=== PATIENT | female | born 1945 | race Caucasian/White ===

== ENCOUNTER → 2016-05-13 | Day surgery (SDC) | payer OTHER ==
[~2016-05-13] VITALS: Ht 147.3 cm; Wt 80.0 kg
[~2016-05-13] MED LIST: ACETAMINOPHEN 325 MG TAB PO PRN; AMLO5TAB2 PO; ASPI-589 PO; ATOR10TA88 PO; ATROPINE SULFATE 0.1 MG/ML 5ML SYR IV PRN; FENTANYL CITRATE INJ 50 MCG/1 ML 2 ML VIAL ONE; FLUT0.15 NAE; HEPARIN SOD (PORCINE) 1000 UNIT/ML 10 ML VIAL ONE; LISI40TA PO; METO25TA56 PO; MIDAZOLAM HCL 1 MG/ML 2ML VIAL ONE; NITROGLYCERIN/D5W 100MCG/ML 20ML SYR ONE; NiCARDipine HCL INJ 2.5 MG/ML 10 ML AMP ONE; ONDANSETRON INJ 2 MG/ML 2 ML VIAL IV PRN; PATIENT'S ALLERGY INFO NEEDS ENTERED SCH; PRM625 PV; SODIUM CHLORIDE 0.9% 1000ML 1,000 ML IV SCH; SODIUM CHLORIDE 0.9% 1000ML 250 ML IV PRN; VALA500T60 PO
[2016-05-13 10:10] VITALS: BP 160/57; PULSE 60; TEMP 36.5; O2SAT 96; Ht 147.3 cm; Wt 80.0 kg
--- NOTE | 2016-05-13 15:22 | History & Physical Bridge Note ---
H&P Re-Evaluation Bridge Note: I have examined the patient, reviewed the History & Physical and in the interval since the performance of the History & Physical I have noted the following changes of clinical significance: No changes noted
--- NOTE | 2016-05-13 15:29 | Cardiac Catheterization ---
Procedure Note Procedure Date May 13, 2016. Pre-Procedure Diagnosis Angina AUC Score 6 Post-Procedure Diagnosis Normal Coronary Arteries Procedure(s) Performed Coronary Angiography Laboratory Asst Dr. Mullen Reset Merchandiser(s) None Estimated Blood Loss None Medication(s) Heparin, Versed, Lidocaine 1% Summary of Findings normal coronaries Hemodynamics Rest Ao: 116/65 Final Ao: 120/63 LV: valve not crossed Recommendations None Specimens None Radiation Exposure (mGy) 907 Contrast (mls) 65 Fluids (cc crystalloids) 40 Procedural Complication(s) None Disposition Hand Miter Operator Holding/Recovery ACC Data Cardiac Status Clinical evaluation leading to the procedure CAD Presntation: Sx unlikely to be ischemic Anginal Classification: CCS I Heart Failure: No Cardiogenic Shock w/in 24Hrs: No Cardiac Arrest w/in 24Hrs: No Imaging studies past 6 months: No Stress studies past 6 months: No Standard Exercise Stress Test: No Stress Echocardiogram: No Stress Testing w/SPECT MPI: No Cardiac CTA: No Coronary Anatomy Dominant: Left Left Main (% Stenosis): Normal LAD (% Stenosis): Normal Circumflex (% Stenosis): Normal RCA (% Stenosis): Normal Diagnostic Status: Elective Closure Device Percutaneous Entry Location: Radial Closure Device: Radial Band Recommendations: None
--- NOTE | 2016-05-13 15:35 | Discharge Instructions ---
Discharge Instructions Procedure Procedure Date: May 13, 2016. Reason for Visit: Chest Pain *Dr Mullen To Do*. Discharge Discharge Date: May 13, 2016. Discharge Diagnosis: Normal cath Last Recorded Wt (Kilograms): 80 Anesthesia Post Anesthesia Instructions: If you have had General Anesthesia or IV Sedation: * Do not drive today. * Resume driving when surgeon permits. * Do not make important decisions or sign legal documents today. * Call surgeon for: 1. Temperature elevations greater than 101 degrees F. 2. Uncontrollable pain. 3. Excessive bleeding. 4. Persistent nausea and vomiting. 5. Medication intolerance (nausea, vomiting or rash). * For nausea and vomiting use only clear liquids such as: tea, soda, bouillon until nausea subsides, then gradually increase diet as tolerated. * If you have any concerns or questions, call your surgeon's office. If physician is unavailable and it is an emergency, call 911 or go to the nearest emergency room. Instructions Activity Recommendations: limitations Recommended Home Diet: resume previous diet Provider Instructions ACTIVITY RECOMMENDATIONS: Excess manipulation of the wrist should be avoided for the next 24-48 hours. * No lifting over 2 pounds (approximately a 1/2 gallon of milk) with the utilized arm for 24 hours. * No strenuous activity such as bowling or tennis for 3 days. * Keep the site of the procedure covered with a bandage for 24 hours. *You may shower the day after the procedure. Do not take a tub bath or submerge the puncture site in water for the next 3 days. *Do not operate any motorized equipment for 3 days. SPECIAL CARE INSTRUCTIONS: The site may be slightly bruised and sore following your procedure. Should any of the following occur, contact the Dr. who performed your procedure. 1. Redness/inflammation, swelling, chills, or fever, or colored drainage at procedure site within 3-7 days after your procedure. 2. Coldness, discoloration, ongoing numbness, severe pain, or swelling. Expect mild tingling of hand and tenderness at the puncture site for up to three days. If this persists beyond three days, or other symptoms develop, notify the DrMone who performed your procedure. BLEEDING: If the procedure site on your wrist begins to bleed, do not panic 1. Place 1 or 2 fingers firmly just slightly above the insertion site to stop the bleeding. You may be able to feel your pulse as you hold pressure. 2. Lift your finger after 5 minutes to see if the bleeding has stopped. 3. Once the bleeding has stopped, gently wipe the wrist area clean with a bandage. * If the bleeding from your wrist does not stop after 10 minutes, or if there is a large amount of bleeding or spurting, call 911 (do not drive yourself to the hospital). SKIN IRRITATION: * You may experience some redness and/or swelling in the area where radiation was administered. If any skin irritation occurs, please contact your family physician. FOLLOW UP VISIT: Keep any scheduled doctor appointments. Follow Up Follow-up with: Dr. Zarate office will call with follow-up date Minna Dominique Recommendations: Call your doctor if: * Temperature above 101 degrees * Pain not relieved by pain medicine ordered * There is increased drainage or redness from any incision * You have any unanswered questions or concerns. Your Doctors Instructions noted above were prepared by provider Jamshid Mullen. Patient Signature Section: Patient Instructions Signature Page Daxa Ruiz Patient (or Guardian) Signature/Date: I have read and understand the instructions given to me by my caregivers. Caregiver/RN/Doctor Signature/Date: The above-named patient and/or guardian has received patient instructions on this date. + Original Patient Signature Page (only) stays with chart. Please make copy for patient.
[2016-05-13 17:15] VITALS: BP 145/65; PULSE 66; O2SAT 98
--- NOTE | 2016-05-14 07:06 | CARDIAC CATH REPORT ---
PROCEDURE: Coronary angiography. HISTORY: The patient is a 71-year-old female with a history of PSVT, resulting in intermittent episodes of heart palpitations and atypical chest pain. She was seen by Dr. Zarate recently and had complaints of left arm and chest discomfort with activity. She recently had a brother who had open heart surgery. It was decided due to her history that it would be best to perform a cardiac catheterization. PROCEDURE SUMMARY: The patient was seen and evaluated in the holding area of the laborer [place]. After informed consent was obtained, a Barbeau maneuver was performed and the patient was taken to the cardiac catheterization lab, prepped and draped in the usual manner for a right transradial approach. Preformed 4-Burmese diagnostic catheters were utilized for the coronary angiograms. Following the procedure, the patient was returned to the holding area of the lab[place] in stable condition. CORONARY ANGIOGRAPHY: Elective injections of the left coronary artery reveal it to be hyperdominant. The left circumflex is very large with multiple marginal branches. The left circumflex artery is smooth in appearance, widely patent, and within normal limits. The LAD extends to the apex of the heart. The LAD system is smooth in appearance, widely patent, and within normal limits. The right coronary artery is small compared to the left circumflex and is nondominant. The right coronary artery is smooth in appearance, widely patent, and within normal limits. SUMMARY: The patient has widely patent and normal coronary arteries. Recommendations are for followup with her primary wood coater for further treatment of her PSVT.
== END | disposition home or self-care (01) ==
LOC: C.CATH 09:36
PROVIDERS: ATTEND Internal Medicine Interventional Cardiology
DX: I20.9 Angina pectoris, unspecified (principal)

== ENCOUNTER → 2016-06-15 | Outpatient (CLI) | payer OTHER ==
[~2016-06-15] MED LIST changes: -ACETAMINOPHEN 325 MG TAB PO PRN; -ATROPINE SULFATE 0.1 MG/ML 5ML SYR IV PRN; -FENTANYL CITRATE INJ 50 MCG/1 ML 2 ML VIAL ONE; -FLUT0.15 NAE; -HEPARIN SOD (PORCINE) 1000 UNIT/ML 10 ML VIAL ONE; -MIDAZOLAM HCL 1 MG/ML 2ML VIAL ONE; -NITROGLYCERIN/D5W 100MCG/ML 20ML SYR ONE; -NiCARDipine HCL INJ 2.5 MG/ML 10 ML AMP ONE; -ONDANSETRON INJ 2 MG/ML 2 ML VIAL IV PRN; -PATIENT'S ALLERGY INFO NEEDS ENTERED SCH; -PRM625 PV; -SODIUM CHLORIDE 0.9% 1000ML 1,000 ML IV SCH; -SODIUM CHLORIDE 0.9% 1000ML 250 ML IV PRN
--- NOTE | 2016-06-15 12:41 | MAMMOGRAPHY REPORT ---
BILATERAL DIGITAL SCREENING MAMMOGRAM WITH CAD: 06/15/2016 TECHNIQUE: Current study was also evaluated with a Computer Aided Detection (CAD) system. Bilatera l CC and MLO views were obtained. COMPARISON: Comparison is made to exams dated: 06/12/2015 mammogram, 06/11/2014 mammogram, 06/08/2013 ma mmogram, 06/06/2012 mammogram, 12/22/2012 mammogram, and 06/01/2011 mammogram - [facility]ter. BREAST COMPOSITION: There are scattered areas of fibroglandular density in both breasts. FINDINGS: No suspicious masses, calcifications, or areas of architectural distortion are noted in e ither breast. There has been no significant interval change compared to prior exams. Scattered bilat eral benign-appearing calcifications are not significantly changed. IMPRESSION: ACR BI-RADS CATEGORY 2: BENIGN There is no mammographic evidence of malignancy. A 1 year screening mammogram is recommended. The p atient will receive written notification of the results. Approximately 10% of breast cancers are not detected with mammography. A negative mammographic repor t should not delay biopsy if a clinically suggestive mass is present. Sofi Koehler M.D. ah/:06/15/2016 11:53:00 Lamination Spinner: Marya ALONSO(Jose)(Niru), [facility] letter sent: Normal 1/2 BI-RADS Code: ACR BI-RADS Category 2: Benign
== END | disposition home or self-care (01) ==
LOC: C.MAMM 10:50
PROVIDERS: ATTEND Family Medicine
DX: Z12.31 Encounter for screening mammogram for malignant neoplasm of breast (principal)

== ENCOUNTER → 2017-06-16 | Outpatient (CLI) | payer OTHER ==
[~2017-06-16] MED LIST changes: +ATOR10TA82 PO; -ATOR10TA88 PO
--- NOTE | 2017-06-16 15:23 | MAMMOGRAPHY REPORT ---
BILATERAL DIGITAL SCREENING MAMMOGRAM TOMOSYNTHESIS WITH CAD: 06/16/2017 CLINICAL HISTORY: Routine screening. Patient has no complaints. TECHNIQUE: Breast tomosynthesis in addition to standard 2D mammography was performed. Current study was also evaluated with a Computer Aided Detection (CAD) system. COMPARISON: Comparison is made to exams dated: 06/15/2016 mammogram, 06/12/2015 mammogram, 06/11/2014 ma mmogram, 06/08/2013 mammogram, 06/06/2012 mammogram, and 06/01/2011 mammogram - [facility]. BREAST COMPOSITION: There are scattered areas of fibroglandular density in both breasts. FINDINGS: No suspicious masses, calcifications, or areas of architectural distortion are noted in ei ther breast. There has been no significant interval change compared to prior exams. IMPRESSION: ACR BI-RADS CATEGORY 1: NEGATIVE There is no mammographic evidence of malignancy. A 1 year screening mammogram is recommended. The pa tient will receive written notification of the results. Approximately 10% of breast cancers are not detected with mammography. A negative mammographic report should not delay biopsy if a clinically suggestive mass is present. Sofi Koehler M.D. /:06/16/2017 11:30:45 Supervisor Lead Burning: Kalie ALONSO(Jose)(Niru), [facility] letter sent: Normal 1/2 BI-RADS Code: ACR BI-RADS Category 1: Negative
== END | disposition home or self-care (01) ==
LOC: C.MAMM 11:05
PROVIDERS: ATTEND Family Medicine
DX: Z12.31 Encounter for screening mammogram for malignant neoplasm of breast (principal)

== ENCOUNTER 2020-12-17 09:55 | Inpatient (IN) ==
--- NOTE | 2020-12-17 10:30 | Emergency Department Note ---
Impression & Plan Atrial fibrillation with rapid ventricular response, Anaplasmosis, Fever, Lyme disease, SVT (supraventricular tachycardia) ED Provider Note NAME: CABRERA ROSALES AGE: 75 SEX: F : 1945 ARRIVES VIA: Walk-In INFORMANT: Patient, ED PROVIDER(S): Chay Sales DO CHIEF COMPLAINT: Fever HPI: The patient is a 75-year-old female who presented to the emergency department for an evaluation of fever. The patient states that her symptoms began almost 2 weeks ago. She started having dental pain. She was having diffuse upper dentition pain but also lower dentition pain. She thought it was her teeth so she went to see her dentist. She had x-rays and was not found to have any cause for her pain. The patient was set up an appointment with a specialist. She started having fever and at that time was started on amoxicillin. She has been on amoxicillin for a week already. She states he continues to have fevers. She called her primary care physician last Wednesday and was sent to urgent care. She had a Covid test at that time which was negative. She called her primary care physician again today and [facility]. She denies having any chest pain. She denies having any cough. She denies having any diarrhea dysuria or frequency. She notices no lower extremity swelling or pain. She states the pain is mild to moderate at this time. She does take medicines for the fever and last took Tylenol at 6:00 this morning. She states she is been compliant with her other outpatient medications. She does garden but notices no rashes or joint swelling or joint pain. ROS: See above HPI for pertinent positives & negatives. A total of 10 systems reviewed and were otherwise negative. PAST MEDICAL HISTORY: See Below PAST SURGICAL HISTORY: See Below FAMILY HISTORY: See Below SOCIAL HISTORY: See Below HOME MEDICATIONS: See Below ALLERGIES: See Below VITALS: See Below PHYSICAL EXAMINATION: GENERAL: Patient is awake alert in no acute distress patient is resting comfo rtably and showing no signs of anxiety EYES: The conjunctivae are clear. The pupils are round and reactive. EARS, NOSE, MOUTH AND THROAT: The nose is without any evidence of any deformity. Dentition is intact. There is tenderness over the right maxillary region. NECK: The neck is nontender and supple. RESPIRATORY: Normal respiratory effort is noted there is no evidence of wheezing rhonchi or rales CARDIOVASCULAR: Tachycardic rate with regular rhythm was noted. There is no definite murmur. GASTROINTESTINAL: The abdomen is soft. Abdomen is nontender. MUSCULOSKELETAL/EXTREMITIES: There is no evidence of gross deformity full range of motion is noted in the hips and shoulders. SKIN: There is no obvious evidence of any rash. There are no petechiae, pallor or cyanosis noted. NEUROLOGIC: Patient is awake alert and oriented x3 strength is symmetric patellar reflexes are 2+ bilaterally MEDICAL DECISION MAKING: The patient is a 75-year-old female who presented to the emergency department with facial pain dental pain and acute febrile illness. The patient has been having symptoms for the last week or so. She has been seen by dental and this was not definitely the source of her fever or other symptoms. The patient was treated with IV antibiotics in the emergency department. Upon arrival she was found to be in rapid atrial fibrillation. The patient was treated with IV Cardizem. Her rate significantly improved. I discussed the patient's laboratory and radiographic studies with her. The atrial fibrillation would be a new diagnosis for her. For this reason I discussed her case with the on-call [facility] hospitalist group. She was also found to have a peripheral smear that could be consistent with anaplasmosis. This may explain the patient's febrile symptoms. She does work in her garden and may have been exposed to a tickborne illness. She was feeling much better on subsequent reevaluation. Triage Nursing notes reviewed. Prior medical records reviewed Vital Signs: reviewed and remarkable for tachypnea and tachycardia. Differential diagnosis: Viral syndrome, otitis, pharyngitis, pneumonia, influenza, meningitis, urinary tract infection, sepsis, bacteremia, as well as other pathologies. ER treatment provided: See below Diagnostics interpreted by me: ECG: EKG was obtained in the emergency department. My interpretation is atrial fibrillation at 144 bpm. Low voltage was noted. There were no PVCs noted. This was compared to a tracing from June [id number]. Atrial fibrillation has replaced normal sinus rhythm. A second EKG was obtained in the emergency department. My interpretation is atrial fibrillation at 105 bpm. There is no PVCs noted. This was compared to the earlier tracing there was a decrease in the ventricular rate otherwise there was no specific change. Cardiac Monitoring: An order was placed for continuous cardiac monitoring. The monitor shows a rate of 95 bpm with atrial fibrillation rhythm. Laboratory studies: As stated above and show below. Imaging studies: See below Consultation(s): I discussed this case with Radha who is on for the [facility] hospitalist group. They will evaluate the patient in the emergency department. 1345: The patient was witnessed to be in narrow complex tachycardia on the solvent station attendant. I went to the bedside. The patient was found to be in SVT. Modified Valsalva maneuver was done. The patient went from narrow complex tachycardia to 100 bpm. She started to slow and was initially at 170 bpm but then broke back to atrial fibrillation at 98 bpm. Repeat EKG is pending. Em Vargas PA-C was at the bedside. They will continue further cardiac work-up. Past Med/Surg History Medical History History of PSVT (paroxysmal supraventricular tachycardia) HLD (hyperlipidemia) HTN (hypertension) Surgical History History of appendectomy History of tonsillectomy Family History Other Heart disease Hypertension Social History Smoking Status: Never smoker Hx Alcohol Use: No Hx Substance Use: No Preferred Language: Maltese Feels Safe at Home: Yes Allergies Allergies Allergy/AdvReac Type Severity Reaction Status Date / Time Sulfa (Sulfonamide Allergy Unknown . Verified 12/17/20 10:41 Antibiotics) Home Meds Home Medications Medication Instructions Recorded Confirmed acetaminophen 500 mg tablet 500 mg PO Q6H PRN 12/17/20 12/17/20 (Tylenol Extra Strength) amoxicillin 500 mg-potassium 1 tab PO TID 12/17/20 12/17/20 clavulanate 125 mg tablet hydrochlorothiazide 25 mg tablet 12.5 mg PO DAILY 12/17/20 12/17/20 lisinopril 40 mg tablet 40 mg PO QAM 12/17/20 12/17/20 loratadine 10 mg tablet 10 mg PO DAILY PRN 12/17/20 12/17/20 yebyrmflkpps-fdsrumsh-vyclhh tablet 1 tab PO DAILY 12/17/20 12/17/20 rosuvastatin 5 mg tablet 5 mg PO MOWEFR 12/17/20 12/17/20 valacyclovir 500 mg tablet 500 mg PO BID PRN 12/17/20 12/17/20 Results & Data (ED) Vital Signs Vital Signs - 24 hr 12/17/20 09:57 12/17/20 11:09 12/17/20 11:14 Temperature 36.8 C Temperature Source Temporal Artery Scan Pulse Rate 148 H 147 H Pulse Rate [Apical] 145 H Pulse Rate from SpO2 Sensor 158 H Pulse Rhythm Regular Pulse Strength Normal Respiratory Rate 20 23 20 Respiratory Effort / Characteristics Non-Labored Spontaneous Respiratory Depth Normal Respiratory Pattern Regular Blood Pressure 166/132 H 140/108 H Blood Pressure [Left Arm] 140/108 H Blood Pressure Mean 143 118 Blood Pressure Mean [Left Arm] 118 Blood Pressure Position Sitting Blood Pressure Position [Left Arm] Pulse Oximetry 96 95 95 Oxygen Delivery Method Room Air Room Air Sepsis Recent Fever Within 48 Hours No Sepsis New/Unexplained Change in Mental Status No Sepsis Action Taken by Nursing No Action Required 12/17/20 11:17 12/17/20 12:32 12/17/20 12:36 Temperature Temperature Source Pulse Rate 95 H 115 H Pulse Rate [Apical] 88 129 H Pulse Rate from SpO2 Sensor 98 H 141 H Pulse Rhythm Pulse Strength Respiratory Rate 31 H 22 20 Respiratory Effort / Characteristics Respiratory Depth Respiratory Pattern Blood Pressure 129/64 Blood Pressure [Left Arm] 129/64 149/100 H Blood Pressure Mean 85 Blood Pressure Mean [Left Arm] 85 116 Blood Pressure Position Blood Pressure Position [Left Arm] Lying Pulse Oximetry 94 93 95 Oxygen Delivery Method Room Air Room Air Sepsis Recent Fever Within 48 Hours Sepsis New/Unexplained Change in Mental Status Sepsis Action Taken by Nursing 12/17/20 13:02 12/17/20 13:10 12/17/20 13:20 Temperature Temperature Source Pulse Rate 110 H 137 H 135 H Pulse Rate [Apical] Pulse Rate from SpO2 Sensor 122 H 139 H 137 H Pulse Rhythm Pulse Strength Respiratory Rate 21 23 25 H Respiratory Effort / Characteristics Respiratory Depth Respiratory Pattern Blood Pressure Blood Pressure [Left Arm] Blood Pressure Mean Blood Pressure Mean [Left Arm] Blood Pressure Position Blood Pressure Position [Left Arm] Pulse Oximetry 94 94 93 Oxygen Delivery Method Sepsis Recent Fever Within 48 Hours Sepsis New/Unexplained Change in Mental Status Sepsis Action Taken by Nursing 12/17/20 13:30 12/17/20 13:40 12/17/20 13:50 Temperature Temperature Source Pulse Rate 93 H 189 H 109 H Pulse Rate [Apical] Pulse Rate from SpO2 Sensor 94 H 189 H 110 H Pulse Rhythm Pulse Strength Respiratory Rate 25 H 26 H 25 H Respiratory Effort / Characteristics Respiratory Depth Respiratory Pattern Blood Pressure Blood Pressure [Left Arm] Blood Pressure Mean Blood Pressure Mean [Left Arm] Blood Pressure Position Blood Pressure Position [Left Arm] Pulse Oximetry 93 95 97 Oxygen Delivery Method Sepsis Recent Fever Within 48 Hours Sepsis New/Unexplained Change in Mental Status Sepsis Action Taken by Nursing 12/17/20 14:00 Temperature Temperature Source Pulse Rate Pulse Rate [Apical] 100 H Pulse Rate from SpO2 Sensor Pulse Rhythm Pulse Strength Respiratory Rate 20 Respiratory Effort / Characteristics Respiratory Depth Respiratory Pattern Blood Pressure Blood Pressure [Left Arm] Blood Pressure Mean Blood Pressure Mean [Left Arm] Blood Pressure Position Blood Pressure Position [Left Arm] Pulse Oximetry 93 Oxygen Delivery Method Room Air Sepsis Recent Fever Within 48 Hours Sepsis New/Unexplained Change in Mental Status Sepsis Action Taken by Alf Medications Current Medication List: was personally reviewed by me Laboratory Data Attestation: I reviewed the patient's lab results. Result diagrams: 12/17/20 10:37 12/17/20 10:37 Lab Results 12/17/20 12/17/20 12/17/20 Range/Units 10:37 10:37 10:37 WBC 11.57 H (4.8-10.8) K/uL RBC 4.60 (4.2-5.4) M/uL Hgb 13.4 (12.0-16.0) g/dL Hct 38.6 (37-47) % MCV 83.9 (80-100) fL MCH 29.1 (25-34) pg MCHC 34.7 (32-36) g/dL RDW Std Deviation 43.3 (36.4-46.3) fL RDW Coeff of Summer 14.2 (11.5-14.5) % Plt Count 260 (130-400) K/uL MPV 9.2 (7.4-10.4) fL Immature Gran % (Auto) 0.9 % Neut % (Auto) 65.4 % Lymph % (Auto) 22.7 % [place] % (Auto) 8.6 % Eos % (Auto) 1.4 % Baso % (Auto) 1.0 % Neut # (Auto) 7.58 H (1.4-6.5) K/uL Lymph # (Auto) 2.63 (1.2-3.4) K/uL [place] # (Auto) 0.99 H (0.11-0.59) K/uL Eos # (Auto) 0.16 (0-0.5) K/uL Baso # (Auto) 0.11 (0-0.2) K/uL Immature Gran # (Auto) 0.10 H (0.00-0.02) K/uL Peripher Smr Path Cons ESR 63 H (0-30) mm/hr Sodium 133 L (136-145) mmol/L Potassium 3.6 (3.5-5.1) mmol/L Chloride 103 (98-107) mmol/L Carbon Dioxide 26 (21-32) mmol/L Anion Gap 4.0 (3-11) BUN 15 (7-18) mg/dl Creatinine 0.72 (0.6-1.2) mg/dl Est Cr Clr Drug Dosing 61.3 ml/min Est GFR ( Amer) 95.6 ml/min Est GFR (Non-Af Amer) 82.5 ml/min BUN/Creatinine Ratio 20.3 H (10-20) Glucose 120 H (70-99) mg/dl Calcium 8.8 (8.5-10.1) mg/dl Magnesium 1.9 (1.8-2.4) mg/dl Total Bilirubin 0.6 (0.2-1) mg/dl AST 49 H (15-37) U/L ALT 64 (12-78) U/L Alkaline Phosphatase 156 H (45-117) U/L Troponin I 0.018 (0-0.045) ng/ml C-Reactive Protein 9.37 H (0-0.29) mg/dl Total Protein 6.7 (6.4-8.2) gm/dl Albumin 2.9 L (3.4-5.0) gm/dl Globulin 3.8 (2.5-4.0) gm/dl Albumin/Globulin Ratio 0.8 L (0.9-2) Lipase 106 (73-393) U/L Procalcitonin (0-0.5) ng/ml TSH 1.220 (0.300-4.500) uIu/ml Anaplasma Smear See Comment A Anaplasma Comment Pos for Anaplasma Lyme Disease IgG Ab (Negative) Lyme Disease IgM Ab (Negative) COVID-19 Eval Order SARS-CoV-2 (PCR) (Negative) 12/17/20 12/17/20 12/17/20 Range/Units 10:37 11:36 11:36 WBC (4.8-10.8) K/uL RBC (4.2-5.4) M/uL Hgb (12.0-16.0) g/dL Hct (37-47) % MCV (80-100) fL MCH (25-34) pg MCHC (32-36) g/dL RDW Std Deviation (36.4-46.3) fL RDW Coeff of Summer (11.5-14.5) % Plt Count (130-400) K/uL MPV (7.4-10.4) fL Immature Gran % (Auto) % Neut % (Auto) % Lymph % (Auto) % [place] % (Auto) % Eos % (Auto) % Baso % (Auto) % Neut # (Auto) (1.4-6.5) K/uL Lymph # (Auto) (1.2-3.4) K/uL [place] # (Auto) (0.11-0.59) K/uL Eos # (Auto) (0-0.5) K/uL Baso # (Auto) (0-0.2) K/uL Immature Gran # (Auto) (0.00-0.02) K/uL Peripher Smr Path Cons ESR (0-30) mm/hr Sodium (136-145) mmol/L Potassium (3.5-5.1) mmol/L Chloride (98-107) mmol/L Carbon Dioxide (21-32) mmol/L Anion Gap (3-11) BUN (7-18) mg/dl Creatinine (0.6-1.2) mg/dl Est Cr Clr Drug Dosing ml/min Est GFR ( Amer) ml/min Est GFR (Non-Af Amer) ml/min BUN/Creatinine Ratio (10-20) Glucose (70-99) mg/dl Calcium (8.5-10.1) mg/dl Magnesium (1.8-2.4) mg/dl Total Bilirubin (0.2-1) mg/dl AST (15-37) U/L ALT (12-78) U/L Alkaline Phosphatase (45-117) U/L Troponin I (0-0.045) ng/ml C-Reactive Protein (0-0.29) mg/dl Total Protein (6.4-8.2) gm/dl Albumin (3.4-5.0) gm/dl Globulin (2.5-4.0) gm/dl Albumin/Globulin Ratio (0.9-2) Lipase (73-393) U/L Procalcitonin 0.46 (0-0.5) ng/ml TSH (0.300-4.500) uIu/ml Anaplasma Smear Anaplasma Comment Lyme Disease IgG Ab Negative (Negative) Lyme Disease IgM Ab Positive A (Negative) COVID-19 Eval Order Covid19 at [facility] SARS-CoV-2 (PCR) NEGATIVE (Negative) Administered Medications Discontinued Medications Adenosine (Adenosine Iv Soln 3 Mg/Ml 2 Ml Vial) 6 mg IV NOW STA Stop: 12/17/20 13:45 Last Admin: 12/17/20 13:57 Dose: Not Given Documented by: [id number] Diltiazem HCl (Diltiazem Hcl 5 Mg/Ml 5 Ml Vial) 20 mg IV NOW STA Stop: 12/17/20 10:50 Last Admin: 12/17/20 11:11 Dose: 20 mg Documented by: [id number] Cosigned by: [id number] Doxycycline Hyclate (Doxycycline Hyclate 100 Mg Cap) 200 mg PO NOW STA Stop: 12/17/20 11:24 Last Admin: 12/17/20 12:02 Dose: 200 mg Documented by: [id number] Ceftriaxone Sodium (Rocephin) 1,000 mg in 50 mls @ 100 mls/hr IV NOW STA Stop: 12/17/20 11:52 Last Infusion: 12/17/20 12:32 Dose: 0 mls/hr Documented by: [id number] Admin: 12/17/20 12:02 Dose: 100 mls/hr Documented by: [id number] Ondansetron HCl (Ondansetron Inj 2 Mg/Ml 2 Ml Vial) 4 mg IV NOW STA Stop: 12/17/20 12:03 Last Admin: 12/17/20 12:06 Dose: 4 mg Documented by: [id number] Imaging Data Radiologist's Impression: Chest X-Ray 12/17/20 10:24 XR chest 1V portable HISTORY: 75 years-old Female Fever acute fever COMPARISON: None TECHNIQUE: Portable AP view of the chest FINDINGS: Cardiac silhouette is mildly enlarged. There is a suggested hiatal hernia. Linear left greater than right bibasilar consolidative opacities. There is no pn eumothorax, pleural effusion, or overt pulmonary edema. The bones of the chest appear grossly intact. IMPRESSION: 1. Linear bibasilar opacities are suggestive of probable atelectasis. 2. Cardiomegaly. ACT 112: Negative or not required by law. The above report was generated using voice recognition software. It may contain grammatical, syntax or spelling errors. Electronically signed by: Jose Eduardo Pringle M.D. 12/17/2020 10:[address] 12/17/20 10:[address] DOSE: HISTORY: Headache. TECHNIQUE: Multiaxial CT images of the head were performed without the use of intravenous contrast. Automated exposure control was utilized for this study. A dose lowering technique was utilized adhering to the principles of ALARA. Comparison: None. Findings: The paranasal sinuses and mastoid air cells are clear. The calvarium and skull base are intact. The ventricles and sulci are within normal limits. There is no mass, hematoma, midline shift, or acute infarct. Impression: No acute intracranial abnormality. ACT 112: Negative or not required by law. Electronically signed by: Pepe Orellana M.D. 12/17/2020 11:[address] 12/17/20 10:24 CT sinus wo con HISTORY: 75 years-old Female fever acute fever COMPARISON: Head CT of same day TECHNIQUE: Multiple axial CT images of the paranasal sinuses were obtained without the use of IV contrast. A dose lowering technique was used consistent with the principals of ALARA. FINDINGS: The imaged intracranial structures demonstrate no acute abnormality. Age-related involutional changes. Unremarkable soft tissues and orbits. Streak artifact from dental amalgam hardware. No acute calvarial or facial bone fracture. The mastoid air cells and middle ear cavities are generally clear. The frontal sinuses are clear. There is minimal mucosal thickening of the maxillary and sphenoid sinuses. Mild mucosal thickening involves the ethmoid air cells. Patency of the sphenoethmoidal and frontoethmoidal recesses and bilateral maxillary ostiomeatal units. No large Anushka cell or jericho bullosa. Normal nathaly akhil. Minimal sigmoidal bowing and spurring of the nasal septum. IMPRESSION: 1. Mild paranasal sinus disease. 2. Patent sinus outflow tracts. ACT 112: Negative or not required by law. The above report was generated using voice recognition software. It may contain grammatical, syntax or spelling errors. Electronically signed by: Jose Eduardo Pringle M.D. 12/17/2020 11:04 AM Discharge Plan Visit Data Chief Complaint: Fever Stated Complaint: FEVER,FATIGUE ED Provider: Chay Sales Discharge Problem: Atrial fibrillation with rapid ventricular response, Anaplasmosis, Fever, Lyme disease, SVT (supraventricular tachycardia) Patient Disposition: Being Evaluated by Hospitalist Condition: Good Forms Stand Alone Forms: [facility] Prescriptions Prescriptions: No Action valacyclovir 500 mg tablet 500 mg PO BID PRN (Reason: Cold Sores) RF: 0 hydrochlorothiazide 25 mg tablet 12.5 mg PO DAILY RF: 0 lisinopril 40 mg tablet 40 mg PO QAM RF: 0 loratadine 10 mg Tablet 10 mg PO DAILY PRN (Reason: Allergy Symptoms) RF: 0 amoxicillin-pot clavulanate 500-125 mg tablet 1 tab PO TID RF: 0 Centrum Silver Tablet 1 tab PO DAILY RF: 0 rosuvastatin 5 mg tablet 5 mg PO MOWEFR RF: 0 acetaminophen [Tylenol Extra Strength] 500 mg Tablet 500 mg PO Q6H PRN (Reason: Pain) RF: 0 Referrals Referrals: Osbaldo Del Angel MD [Primary Care Provider] - Discharge Problem: Fever Qualifiers: Fever type: unspecified Qualified Code(s): R50.9 - Fever, unspecified
[2020-12-17] MEDS ORDERED: dilTIAZem HCl 5 MG/ML 5 ML VIAL IV STA (10:49)
[2020-12-17 10:50] LABS: Hematocrit (blood only) 38.6 % (37-47); Hemoglobin 13.4 g/dL (12.0-16.0); Mean Corpuscular Hemoglobin 29.1 pg (25-34); Mean Corpuscular Hgb Conc 34.7 g/dL (32-36); Mean Corpuscular Volume 83.9 fL (80-100); Mean Platelet Volume 9.2 fL (7.4-10.4); Platelet Count 260 K/uL (130-400); RDW Coefficient of Variation 14.2 % (11.5-14.5); RDW Standard Deviation 43.3 fL (36.4-46.3); White Blood Count 11.57 K/uL (4.8-10.8)
--- NOTE | 2020-12-17 10:57 | XRay Report ---
XR chest 1V portable HISTORY: 75 years-old Female Fever acute fever COMPARISON: None TECHNIQUE: Portable AP view of the chest FINDINGS: Cardiac silhouette is mildly enlarged. There is a suggested hiatal hernia. Linear left greater than r ight bibasilar consolidative opacities. There is no pneumothorax, pleural effusion, or overt pulmonar y edema. The bones of the chest appear grossly intact. IMPRESSION: 1. Linear bibasilar opacities are suggestive of probable atelectasis. 2. Cardiomegaly. ACT 112: Negative or not required by law. The above report was generated using voice recognition software. It may contain grammatical, syntax o r spelling errors. Electronically signed by: Jose Eduardo Pringle M.D. 12/17/2020 10:56 AM
--- NOTE | 2020-12-17 11:04 | CT Scan Report ---
HEAD CT NONCONTRAST CT DOSE: HISTORY: Headache. TECHNIQUE: Multiaxial CT images of the head were performed without the use of intravenous contrast. A utomated exposure control was utilized for this study. A dose lowering technique was utilized adheri ng to the principles of ALARA. Comparison: None. Findings: The paranasal sinuses and mastoid air cells are clear. The calvarium and skull base are int act. The ventricles and sulci are within normal limits. There is no mass, hematoma, midline shift, or acute infarct. Impression: No acute intracranial abnormality. ACT 112: Negative or not required by law. Electronically signed by: Pepe Orellana M.D. 12/17/2020 11:02 AM
--- NOTE | 2020-12-17 11:05 | CT Scan Report ---
CT sinus wo con HISTORY: 75 years-old Female fever acute fever COMPARISON: Head CT of same day TECHNIQUE: Multiple axial CT images of the paranasal sinuses were obtained without the use of IV cont rast. A dose lowering technique was used consistent with the principals of JAMAL. FINDINGS: The imaged intracranial structures demonstrate no acute abnormality. Age-related involutional changes . Unremarkable soft tissues and orbits. Streak artifact from dental amalgam hardware. No acute calvar ial or facial bone fracture. The mastoid air cells and middle ear cavities are generally clear. The frontal sinuses are clear. There is minimal mucosal thickening of the maxillary and sphenoid sinu ses. Mild mucosal thickening involves the ethmoid air cells. Patency of the sphenoethmoidal and front oethmoidal recesses and bilateral maxillary ostiomeatal units. No large Anushka cell or jericho bullosa . Normal nathaly akhil. Minimal sigmoidal bowing and spurring of the nasal septum. IMPRESSION: 1. Mild paranasal sinus disease. 2. Patent sinus outflow tracts. ACT 112: Negative or not required by law. The above report was generated using voice recognition software. It may contain grammatical, syntax o r spelling errors. Electronically signed by: Jose Eduardo Pringle M.D. 12/17/2020 11:04 AM
[2020-12-17 11:07] LABS: Albumin Level 2.9 gm/dl (3.4-5.0); BUN Creatinine Ratio 20.3 (10-20); Calcium 8.8 mg/dl (8.5-10.1); Creatinine Clr Calc Pharmacy 61.3 ml/min; Est GFR (African American) 95.6 ml/min; Est GFR (Non-African American) 82.5 ml/min; Magnesium 1.9 mg/dl (1.8-2.4); Potassium 3.6 mmol/L (3.5-5.1)
[2020-12-17 11:16] LABS: Albumin Globulin Ratio 0.8 (0.9-2); Bilirubin,Total 0.6 mg/dl (0.2-1); C Reactive Protein 9.37 mg/dl (0-0.29); Globulin 3.8 gm/dl (2.5-4.0); Thyroid Stimulating Hormone 1.22 uIu/ml (0.300-4.500); Total Protein 6.7 gm/dl (6.4-8.2); Troponin I 0.018 ng/ml (0-0.045)
[2020-12-17] MEDS ORDERED: cefTRIAXone SODIUM 1,000 MG/50 ML BAG IV STA (11:23)
[2020-12-17] MEDS ORDERED: DOXYCYCLINE HYCLATE 100 MG CAP PO STA (11:23)
[2020-12-17 11:28] LABS: Basophils # (auto) 0.11 K/uL (0-0.2); Eosinophils # (auto) 0.16 K/uL (0-0.5); Eosinophils % (auto) 1.4 %; Immature Granulocytes % (auto) 0.9 %; Lymphocytes # (auto) 2.63 K/uL (1.2-3.4); Lymphocytes % (auto) 22.7 %; Monocytes # (auto) 0.99 K/uL (0.11-0.59); Monocytes % (auto) 8.6 %; Neutrophils # (auto) 7.58 K/uL (1.4-6.5); Neutrophils % (auto) 65.4 %
[2020-12-17 11:33] LABS: Procalcitonin 0.46 ng/ml (0-0.5)
[2020-12-17 11:39] LABS: Lyme Ab IgG w/WB Rflx Negative (Negative)
[2020-12-17] MEDS ORDERED: ONDANSETRON INJ 2 MG/ML 2 ML VIAL IV STA (12:02)
[2020-12-17 12:09] LABS: Lyme Ab IgM w/WB Rflx Positive (Negative)
[2020-12-17 12:13] LABS: Anaplasmosis Smear(Rpt to DOH) Pos for Anaplasma
--- NOTE | 2020-12-17 12:54 | History & Physical Report ---
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 Afebrile in ER Peripheral smear with intracytoplasmic neutrophilic inclusions noted suspicious for anaplasmosis Anaplasma DNA pending Lyme IgM Ab positive - western blot pending Continue Rocephin and doxycycline Follow blood cultures (4) Tachyarrhythmia: Plan: Initially found to have A fib with RVR at 144 bpm. HR improved to low 100s after 20mg IV diltiazem in ER While still in ER, became tachycardic at 180s-190s with rhythm suspicious for SVT - resolved with vasovagal maneuver, repeat EKG showing NSR at [address] Zarate, who will evaluate patient Giving Lopressor 25mg PO now, and again in AM Will hold off on anticoagulation for now, monitor on telemetry TTE to evaluate for lyme endocarditis (5) HTN (hypertension): Plan: Continue lisinopril Holding hctz in setting of hyponatremia (6) HLD (hyperlipidemia): Plan: Continue statin DVT Ppx: SQ heparin Code status: FULL PCP: Mer Dispo: Admitted to PCU. Plan to return home once medically stable. Patient seen in collaboration with Dr. Montez. Please see addendum. History of Present Illness Chief Complaint: fever, facial pain Primary Care Provider: Osbaldo Del Angel MD This is a 75yo F with a PMH of HTN, GERD, paroxysmal SVT and other medical problems listed below who presents with fever x2 weeks. Has felt achy and fatigued. Then developed facial pain in area of upper dentition and sinuses a few weeks ago and was evaluated by dentist. Had xrays and dental exam but was not found to have a cause for pain. Developed fever and started on course of amoxicillin. Was seen by PCP last Wednesday and sent to urgent care. Covid test was performed which was negative. Concern for possible tickborne disease due to lab abnormalities. Directed to come to ER for further evaluation. Does garden and spend time outdoors. Had a bump on L thigh then has since resolved. New rash on chest and back her daughter noticed earlier today. Continues to feel fatigued, achy and weak. Has had intermittent palpitations since arrival. No fever, chills, lightheadedness, visual changes, chest pain, SOB, nausea, vomiting, abdominal pain, dysuria, diarrhea or constipation. Initially found to have A fib with RVR at 144 bpm. Given 10mg IV diltiazem with improved HR to low 100s. Prior to my exam, patient's HR back to 180s. Underwent valsalva maneuver for suspected SVT with resolution. Repeat EKG showing NSR at [address] Zarate for paroxysmal SVT but no known history of Atrial fibrillation. Allergies Allergy/AdvReac Type Severity Reaction Status Date / Time Sulfa (Sulfonamide Allergy Unknown . Verified 12/17/20 10:41 Antibiotics) Home Medications Medication Instructions Recorded Confirmed Type acetaminophen 500 mg tablet 500 mg PO Q6H PRN 12/17/20 12/17/20 History (Tylenol Extra Strength) hydrochlorothiazide 25 mg tablet 12.5 mg PO DAILY 12/17/20 12/17/20 History lisinopril 40 mg tablet 40 mg PO QAM 12/17/20 12/17/20 History loratadine 10 mg tablet 10 mg PO DAILY PRN 12/17/20 12/17/20 History bykqrywqnzcj-xqovhcqw-emuurg tablet 1 tab PO DAILY 12/17/20 12/17/20 History rosuvastatin 5 mg tablet 5 mg PO MOWEFR 12/17/20 12/17/20 History valacyclovir 500 mg tablet 500 mg PO BID PRN 12/17/20 12/17/20 History doxycycline hyclate 100 mg tablet 100 mg PO BID 14 Days #28 tab 12/19/20 Rx metoprolol tartrate 25 mg tablet 25 mg PO BID 30 Days #60 tab 12/19/20 Rx Past Med/Surg History Medical History History of PSVT (paroxysmal supraventricular tachycardia) HLD (hyperlipidemia) HTN (hypertension) Surgical History History of appendectomy History of tonsillectomy Family History Other Heart disease Hypertension Social History Smoking Status: Never smoker Hx Alcohol Use: No Hx Substance Use: No Preferred Language: Tongan Communication Ability: Effective Beliefs That Will Affect Care: None Current Living Situation: Alone Feels Safe at Home: Yes Assistive Devices: None Review of Systems Review of Systems: At least ten systems reviewed and negative except as noted in the HPI. Physical Exam Physical Exam: General Appearance: WD/WN, vitals as above, NAD, sitting up in bed, pleasant, conversing easily Head: normocephalic, atraumatic Eyes: normal inspection, PERRL, conjunctivae normal, anicteric sclerae ENT: external ear and nose normal, oropharynx normal Neck: normal visual inspection, trachea midline, no thyromegaly Respiratory: normal respiratory effort, lungs clear to auscultation, no wheeze, rales, rhonchi. No accessory muscle use Cardiovascular: tachycardic rate, regular rhythm, no murmur appreciated, normal peripheral pulses, no BLE edema. Vessels: no JVD Chest: normal inspection of chest Abdomen/GI: normal bowel sounds, soft, nontender, no hepatosplenomegaly Extremities/Musculoskeletal: no cyanosis or clubbing, extremities motor strength 5/5 Neurologic: PERRL, EOMI, accommodation nl, no face palsy, no dysarthria, CN's II-XI intact bilaterally and moves all extremities Psychiatric: A+Ox3, euthymic affect Skin: no rashes, normal color, warm/dry. + Maculopapular rash on chest and upper back, no wounds or drainage Results & Data Results & Data ([facility]) Vital Signs (Past 12 Hours) Vital Signs Temp Pulse Pulse Resp BP BP Pulse Ox 12/17/20 12:36 129 H 20 149/100 H 95 12/17/20 12:32 115 H 22 93 12/17/20 11:17 95 H 88 31 H 129/64 129/64 94 12/17/20 11:14 145 H 20 140/108 H 95 12/17/20 11:09 147 H 23 140/108 H 95 12/17/20 09:57 36.8 C 148 H 20 166/132 H 96 Laboratory Results Short CBC 12/17/20 Range/Units 10:37 WBC 11.57 H (4.8-10.8) K/uL Hgb 13.4 (12.0-16.0) g/dL Hct 38.6 (37-47) % Plt Count 260 (130-400) K/uL BMP 12/17/20 10:37 Sodium 133 L Potassium 3.6 Chloride 103 Carbon Dioxide 26 BUN 15 Creatinine 0.72 Glucose 120 H Calcium 8.8 Cardiac Enzymes 12/17/20 Range/Units 10:37 Troponin I 0.018 (0-0.045) ng/ml Liver Function 12/17/20 Range/Units 10:37 Total Bilirubin 0.6 (0.2-1) mg/dl AST 49 H (15-37) U/L ALT 64 (12-78) U/L Alkaline Phosphatase 156 H (45-117) U/L Albumin 2.9 L (3.4-5.0) gm/dl Diagnostic Findings Chest X-Ray 12/17/20 10:24 XR chest 1V portable HISTORY: 75 years-old Female Fever acute fever COMPARISON: None TECHNIQUE: Portable AP view of the chest FINDINGS: Cardiac silhouette is mildly enlarged. There is a suggested hiatal hernia. Linear left greater than right bibasilar consolidative opacities. There is no pneumothorax, pleural effusion, or overt pulmonary edema. The bones of the chest appear grossly intact. IMPRESSION: 1. Linear bibasilar opacities are suggestive of probable atelectasis. 2. Cardiomegaly. ACT 112: Negative or not required by law. The above report was generated using voice recognition software. It may contain grammatical, syntax or spelling errors. Electronically signed by: Jose Eduardo Pringle M.D. 12/17/2020 10:[address] 12/17/20 10:[address] DOSE: HISTORY: Headache. TECHNIQUE: Multiaxial CT images of the head were performed without the use of intravenous contrast. Automated exposure control was utilized for this study. A dose lowering technique was utilized adhering to the principles of ALARA. Comparison: None. Findings: The paranasal sinuses and mastoid air cells are clear. The calvarium and skull base are intact. The ventricles and sulci are within normal limits. There is no mass, hematoma, midline shift, or acute infarct. Impression: No acute intracranial abnormality. ACT 112: Negative or not required by law. Electronically signed by: Pepe Orellana M.D. 12/17/2020 11:[address] 12/17/20 10:24 CT sinus wo con HISTORY: 75 years-old Female fever acute fever COMPARISON: Head CT of same day TECHNIQUE: Multiple axial CT images of the paranasal sinuses were obtained without the use of IV contrast. A dose lowering technique was used consistent with the principals of ALARA. FINDINGS: The imaged intracranial structures demonstrate no acute abnormality. Age-related involutional changes. Unremarkable soft tissues and orbits. Streak artifact from dental amalgam hardware. No acute calvarial or facial bone fracture. The mastoid air cells and middle ear cavities are generally clear. The frontal sinuses are clear. There is minimal mucosal thickening of the maxillary and sphenoid sinuses. Mild mucosal thickening involves the ethmoid air cells. Patency of the sphenoethmoidal and frontoethmoidal recesses and bilateral maxillary ostiomeatal units. No large Anushka cell or jericho bullosa. Normal nathaly akhil. Minimal sigmoidal bowing and spurring of the nasal septum. IMPRESSION: 1. Mild paranasal sinus disease. 2. Patent sinus outflow tracts. ACT 112: Negative or not required by law. The above report was generated using voice recognition software. It may contain grammatical, syntax or spelling errors. Electronically signed by: Jose Eduardo Pringle M.D. 12/17/2020 11:04 AM Code Status & VTE Plan VTE Prophylaxis Plan VTE Prophylaxis will be ordered: Yes Supervising Physician Co-Signing Physician Notes Pt was seen and examined. Agreed with Em SHARP exam, assessment and plan. 75yo F with a PMH of HTN, GERD, paroxysmal SVT presents to the ER with fever x2 weeks. Pt said that she has been very tired and fatigue lately. she said that few weeks ago she had pain in her upper dental area. She saw her dentist and xray was taking that was normal. She was having chill and fever and was starting on Amoxicillin. she was seen at the urgent care clinic and due to abnormal lab, she was sent to the ER to [facility] for tickborne disease. In the ER she was found to be tachycardia with ventricular rates up to 180 bpm, but currently sinus rhythm in the 90s. Denies any lightheadedness, visual changes, chest pain, SOB, nausea, vomiting, abdominal pain, dysuria, diarrhea or constipation. In the ER Covid 19 negative. CXR showed Linear bibasilar opacities are suggestive of probable atelectasis. CT head showed no acute intracranial abnormality. CT sinuses showed mild paranasal sinus disease. Patent sinus outflow tracts. Peripheral smear with intracytoplasmic neutrophilic inclusions noted suspicious for anaplasmosis. Lyme IgM Ab positive. She was started on Doxycycline and Rocephin, will continue current abx. Blood cx collected in the ER, will follow. will follow western blot and Anaplasma DNA. cardiology consult. Starting on Lopressor 25mg. Will get an echo in am. Will hold off on anticoagulant for now since pt is in NSR, waiting for cardio recommendation. Continue monitor closely in Tele. MD Melida (1) Fever Fever type: unspecified Qualified Code(s): R50.9 - Fever, unspecified
[2020-12-17] MEDS ORDERED: ADENOSINE IV SOLN 3 MG/ML 2 ML VIAL IV STA (13:44)
[2020-12-17] MEDS ORDERED: METOPROLOL TARTRATE 25 MG TAB PO ONE (14:28)
[2020-12-17] MEDS ORDERED: ACETAMINOPHEN 325 MG TAB PO PRN (16:07)
[2020-12-17] MEDS ORDERED: POLYETHYLENE (MIRALAX) 17 GM PACK PO PRN (16:07)
[2020-12-17] MEDS ORDERED: LORATADINE 10 MG TAB PO PRN (16:07)
[2020-12-17] MEDS ORDERED: ONDANSETRON INJ 2 MG/ML 2 ML VIAL IV PRN (16:07)
--- NOTE | 2020-12-17 16:16 | Cardiology Consultation ---
Date of Consultation December 17, 2020 Assessment & Plan (1) Tachyarrhythmia: Patient with previous history of supraventricular tachycardia presents with febrile illness, testing positive for anaplasmosis and Lyme disease. Narrow complex tachycardia with ventricular rates up to 180 bpm noted in the emergency room, currently sinus rhythm in the 90s. No evidence of AV block. Patient did not have any subjective palpitations upon presentation. She notes an episode of having to lower her head to the table several days ago, but no david syncope. Her typical heart rate is sinus rhythm in the 50s. We will cautiously start beta-sonia for now. Although there are 2 EKGs that suggest atrial fibrillation, and review of her telemetry and per the way the tachycardia responded to vagal maneuver, I believe that she has redemonstrated SVT today, the question is whether or not she also has paroxysmal atrial fibrillation and since she is a 75-year-old female with a history of hypertension, her [id number] score is 3, which would predict that she is at moderate risk for cardioembolic stroke in the setting of paroxysmal atrial fibrillation. At this time, I think is most reasonable to treat her febrile illness with the appropriate antibiotic, Rocephin and doxycycline have been started by the admitting team and observe her heart rhythm to collect more data prior to committing her to anticoagulation. An echocardiogram will be performed tomorrow. (2) Anaplasmosis: Continue empiric antibiotics with Rocephin and doxycycline. (3) Lyme disease: Continue empiric antibiotics with Rocephin and doxycycline as noted above. Confirmatory testing pending. (4) HTN (hypertension): (5) HLD (hyperlipidemia): Continue prior to hospital dose of lisinopril 40 mg daily. Consider rosuvastatin 5 mg 3 days/week. History of Present Illness Attending Physician: Raquel Montez MD History of Present Illness Daxa Ruiz is a 75 year old female seen in cardiology consultation per the request of mE Vargas PA-C and Dr Joseph for the evaluation of narrow complex tachycardia in the setting of a febrile illness. Patient actually follows with me as an outpatient, with most recent outpatient visit having been in August,. She has a history of supraventricular tachycardia, sinus bradycardia, hypertension, and dyslipidemia. She has had difficulty tolerating statin therapy and therefore takes rosuvastatin 5 mg 3 days/week. She describes having subjective fevers and chills for 3 weeks. Her temperature at home has been as high as 102F. She had some cold sensitivity in her right upper jaw, and therefore saw her dentist, but no abnormality to explain her symptoms was found. Due to ongoing fever she was placed on a course of amoxicillin 8 days ago but had ongoing symptoms. Last evening at 3 AM she woke up and her pajamas were saturated with perspiration and she therefore had to change them. In emergency department her initial EKG performed 12/17/2020 at 10:29 AM reveals a narrow complex irregular heart over interval tachycardia 144 bpm that on first analysis appears to be consistent with atrial fibrillation. At times however on telemetry the tachycardia appeared to have a very irregular R to R interval however.She received a bolus of IV diltiazem, 20 mg with improvement in her heart rate down to the 90s. Subsequently she had a recurrence of elevated heart rates up to 180 bpm, and after a Valsalva maneuver, there was an abrupt change in her heart rhythm, and the subsequent EKG performed at 1348 clearly shows sinus rhythm 100 bpm. Since arrival to the telemetry floor, she had 1 more brief run of elevated heart rates, which once again terminated spontaneously and sinus rhythm is now noted. The patient's COVID-19 screen is negative. Her Lyme IgM antibody screen is positive. Confirmatory test pending. The anaplasma smear is positive. She denies evidence of definite tick bite, but she does spend time outdoors gardening. Past Medical History: As outlined above. Social History: Lives alone, independently Significant other after a long illness 3 months ago Aug, 2020 Non-smoker Allergies Allergy/AdvReac Type Severity Reaction Status Date / Time Sulfa (Sulfonamide Allergy Unknown . Verified 12/17/20 10:41 Antibiotics) Home Medications Medication Instructions Recorded Confirmed Type acetaminophen 500 mg tablet 500 mg PO Q6H PRN 12/17/20 12/17/20 History (Tylenol Extra Strength) amoxicillin 500 mg-potassium 1 tab PO TID 12/17/20 12/17/20 History clavulanate 125 mg tablet hydrochlorothiazide 25 mg tablet 12.5 mg PO DAILY 12/17/20 12/17/20 History lisinopril 40 mg tablet 40 mg PO QAM 12/17/20 12/17/20 History loratadine 10 mg tablet 10 mg PO DAILY PRN 12/17/20 12/17/20 History puuxsygefzvu-nianxthg-lkwneq tablet 1 tab PO DAILY 12/17/20 12/17/20 History rosuvastatin 5 mg tablet 5 mg PO MOWEFR 12/17/20 12/17/20 History valacyclovir 500 mg tablet 500 mg PO BID PRN 12/17/20 12/17/20 History Patient History Medical History History of PSVT (paroxysmal supraventricular tachycardia) HLD (hyperlipidemia) HTN (hypertension) Surgical History History of appendectomy History of tonsillectomy Family History Other Heart disease Hypertension Social History Smoking Status: Never smoker Hx Alcohol Use: No Hx Substance Use: No Preferred Language: Tanzanian Communication Ability: Effective Beliefs That Will Affect Care: None Current Living Situation: Alone Other Information That Helps Us Care for You: No Feels Safe at Home: Yes Safety Concerns: Feels Safe At This Time Assistive Devices: Glasses Review of Systems Review of Systems: All systems reviewed & are unremarkable except as noted in HPI & below Physical Exam Physical Exam: Temp Pulse Resp BP Pulse Ox 36.8 C 91 H 20 122/76 93 12/17/20 16:07 12/17/20 16:07 12/17/20 16:07 12/17/20 16:07 12/17/20 16:07 Constitutional: no acute distress Eyes: PERRL, conjunctivae normal, anicteric sclerae Neck: trachea midline, no thyromegaly Respiratory: normal respiratory effort, lungs clear to auscultation Cardiovascular: RRR, no murmur, no edema Gastrointestinal (Abdomen): normal bowel sounds, soft, nontender, no hepatosplenomegaly Skin: no rashes, warm and dry Neurologic: PERRL, EOMI, accommodation nl, no face palsy, no dysarthria Psychiatric: A+Ox3, euthymic affect Results & Data ([facility]) Vital Signs (Past 12 Hours) Vital Signs Temp Pulse Pulse Pulse Resp BP BP 12/17/20 16:07 36.8 C 91 H 20 122/76 12/17/20 15:25 92 H 20 124/94 12/17/20 14:00 100 H 20 12/17/20 13:50 109 H 25 H 12/17/20 13:40 189 H 26 H 12/17/20 13:30 93 H 25 H 12/17/20 13:20 135 H 25 H 12/17/20 13:10 137 H 23 12/17/20 13:02 110 H 21 12/17/20 12:36 129 H 20 149/100 H 12/17/20 12:32 115 H 22 12/17/20 11:17 95 H 88 31 H 129/64 129/64 12/17/20 11:14 145 H 20 140/108 H 12/17/20 11:09 147 H 23 140/108 H 12/17/20 09:57 36.8 C 148 H 20 166/132 H Pulse Ox 12/17/20 16:07 93 12/17/20 15:25 94 12/17/20 14:00 93 12/17/20 13:50 97 12/17/20 13:40 95 12/17/20 13:30 93 12/17/20 13:20 93 12/17/20 13:10 94 12/17/20 13:02 94 12/17/20 12:36 95 12/17/20 12:32 93 12/17/20 11:17 94 12/17/20 11:14 95 12/17/20 11:09 95 12/17/20 09:57 96 Laboratory Results Cardiac Enzymes 12/17/20 Range/Units 10:37 AST 49 H (15-37) U/L Troponin I 0.018 (0-0.045) ng/ml CBC 12/17/20 Range/Units 10:37 WBC 11.57 H (4.8-10.8) K/uL RBC 4.60 (4.2-5.4) M/uL Hgb 13.4 (12.0-16.0) g/dL Hct 38.6 (37-47) % Plt Count 260 (130-400) K/uL Neut # (Auto) 7.58 H (1.4-6.5) K/uL Lymph # (Auto) 2.63 (1.2-3.4) K/uL [place] # (Auto) 0.99 H (0.11-0.59) K/uL Eos # (Auto) 0.16 (0-0.5) K/uL Baso # (Auto) 0.11 (0-0.2) K/uL Comprehensive Metabolic Panel 12/17/20 Range/Units 10:37 Sodium 133 L (136-145) mmol/L Potassium 3.6 (3.5-5.1) mmol/L Chloride 103 (98-107) mmol/L Carbon Dioxide 26 (21-32) mmol/L BUN 15 (7-18) mg/dl Creatinine 0.72 (0.6-1.2) mg/dl Glucose 120 H (70-99) mg/dl Calcium 8.8 (8.5-10.1) mg/dl AST 49 H (15-37) U/L ALT 64 (12-78) U/L Alkaline Phosphatase 156 H (45-117) U/L Total Protein 6.7 (6.4-8.2) gm/dl Albumin 2.9 L (3.4-5.0) gm/dl Intake and Output 12/17/20 12/17/20 12/17/20 06:59 14:59 22:59 Intake Total 50 / 50 Balance 50 / 50 Intake: IV 50 / 50 cefTRIAXone SODIUM 1,000 mg In 50 / 50 50 ml @ 100 mls/hr IV NOW STA Rx#:[id number] Other: Weight 80.2 kg 80.2 kg Weight Measurement Method Chair Scale Chair Scale Patient Weight 12/18/20 06:59 Weight 80.2 kg
--- NOTE | 2020-12-17 17:00 | Electrocardiogram Report ---
Test Reason : Blood Pressure : / mmHG Vent. Rate : 144 BPM Atrial Rate : 127 BPM P-R Int : 000 ms QRS Dur : 072 ms QT Int : 272 ms P-R-T Axes : 000 -13 058 degrees QTc Int : 421 ms Atrial fibrillation with rapid ventricular response Low voltage QRS Abnormal ECG When compared with ECG of 18-JUN-1999 10:36, Atrial fibrillation has replaced Sinus rhythm Vent. rate has increased BY 74 BPM Nonspecific T wave abnormality now evident in Lateral leads Confirmed by Chay Yepez ([id number]) on 12/17/2020 4:59:51 PM Referred By: REFERRED SELF Confirmed By:Chay Yepez
--- NOTE | 2020-12-17 17:01 | Electrocardiogram Report ---
Test Reason : Blood Pressure : / mmHG Vent. Rate : 105 BPM Atrial Rate : 312 BPM P-R Int : 000 ms QRS Dur : 074 ms QT Int : 328 ms P-R-T Axes : 000 -08 014 degrees QTc Int : 433 ms Atrial fibrillation with rapid ventricular response Low voltage QRS Abnormal ECG When compared with ECG of 17-DEC-2020 10:29, (unconfirmed) Nonspecific T wave abnormality no longer evident in Lateral leads Confirmed by Chay Yepez ([id number]) on 12/17/2020 5:01:25 PM Referred By: REFERRED SELF Confirmed By:Chay Yepez
--- NOTE | 2020-12-17 17:06 | Electrocardiogram Report ---
Test Reason : Blood Pressure : / mmHG Vent. Rate : 100 BPM Atrial Rate : 100 BPM P-R Int : 152 ms QRS Dur : 072 ms QT Int : 316 ms P-R-T Axes : -02 -16 013 degrees QTc Int : 407 ms Normal sinus rhythm Nonspecific T wave abnormality Abnormal ECG When compared with ECG of 17-DEC-2020 11:27, (unconfirmed) Sinus rhythm has replaced Atrial fibrillation Confirmed by Chay Yepez ([id number]) on 12/17/2020 5:06:20 PM Referred By: REFERRED SELF Confirmed By:Chay Yepez
[2020-12-17] MEDS: HEPARIN SOD 5,000 UNIT/0.5 ML VIAL SQ SCH (21:41)
[2020-12-17] MEDS: DOXYCYCLINE HYCLATE 100 MG in DEXTROSE 5% 100 ML IV SCH (21:45)
[2020-12-18 00:01] LABS: Appearance Urine Clear (Clear); Bacteria Urine Automated Negative (Negative); Bilirubin Urine Negative (Negative); Blood Urine Negative (Negative); Color Urine Dark Yellow; Epithelial Cell Urine Auto >30 /lpf (0-5); Glucose Urine UA Negative (Negative); Ketones Urine Trace (Negative); Leukocyte Esterase Urine Trace (Negative); Nitrite Urine Negative (Negative); Protein Urine 1+ (Negative); RBC Urine Automated 0-4 /hpf (0-4); Specific Gravity Urine 1.026 (1.000-1.030); Urobilinogen Urine Negative (Negative); pH Urine 5.5 (4.5-7.5)
[2020-12-18 00:10] LABS: Mucus Urine Present (None Prsent)
[2020-12-18] MEDS: HEPARIN SOD 5,000 UNIT/0.5 ML VIAL SQ SCH ×3 (05:34→20:26)
[2020-12-18 06:13] LABS: Hematocrit (blood only) 31.7 % (37-47); Hemoglobin 10.8 g/dL (12.0-16.0); Mean Corpuscular Hemoglobin 29.1 pg (25-34); Mean Corpuscular Hgb Conc 34.1 g/dL (32-36); Mean Corpuscular Volume 85.4 fL (80-100); Mean Platelet Volume 9.2 fL (7.4-10.4); Platelet Count 250 K/uL (130-400); RDW Coefficient of Variation 14.3 % (11.5-14.5); RDW Standard Deviation 45.2 fL (36.4-46.3); Red Blood Count 3.71 M/uL (4.2-5.4); White Blood Count 12.12 K/uL (4.8-10.8)
[2020-12-18 06:34] LABS: BUN Creatinine Ratio 22.1 (10-20); Calcium 7.9 mg/dl (8.5-10.1); Creatinine Clr Calc Pharmacy 67.1 ml/min; Est GFR (African American) 100.9 ml/min; Potassium 3.4 mmol/L (3.5-5.1)
[2020-12-18] MEDS ORDERED: METOPROLOL TARTRATE 25 MG TAB PO SCH (09:00)
[2020-12-18] MEDS ORDERED: ROSUVASTATIN CALCIUM 5 MG TAB PO SCH (09:00)
[2020-12-18] MEDS: DOXYCYCLINE HYCLATE 100 MG in DEXTROSE 5% 100 ML IV SCH ×2 (09:10→20:25)
[2020-12-18] MEDS: lisinopril 40 MG TAB PO SCH (09:12)
[2020-12-18] MEDS ORDERED: POTASSIUM CHLORIDE CRTAB 20 MEQ TABCR PO STA (09:43)
--- NOTE | 2020-12-18 09:47 | Cardiology Progress Note ---
Date of Service December 18, 2020 Assessment & Plan (1) Tachyarrhythmia: Plan: Patient with previous history of supraventricular tachycardia presents with febrile illness, testing positive for anaplasmosis and Lyme disease. Narrow complex tachycardia with ventricular rates up to 180 bpm noted in the emergency room, currently sinus rhythm in the 90s. 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 Patient did not have any subjective palpitations upon presentation. She notes an episode of having to lower her head to the table several days ago, but no david syncope. Her typical heart rate is sinus rhythm in the 50s. We will cautiously start beta-sonia for now. Although there are 2 EKGs that suggest atrial fibrillation, and review of her telemetry and per the way the tachycardia responded to vagal maneuver, I believe that she has redemonstrated SVT. The question is whether or not she also has paroxysmal atrial fibrillation and since she is a 75-year-old female with a history of hypertension, her [id number] score is 3, which would predict that she is at moderate risk for cardioembolic stroke in the setting of paroxysmal atrial fibrillation. At this time, I think is most reasonable to treat her febrile illness with the appropriate antibiotic, Rocephin and doxycycline have been started by the admitting team and observe her heart rhythm to collect more data prior to committing her to anticoagulation. Echocardiogram reveals normal LVEF, no pericardial effusion. (2) Anaplasmosis: Plan: Continue empiric antibiotics with Rocephin and doxycycline. (3) Lyme disease: Plan: Continue empiric antibiotics with Rocephin and doxycycline as noted above. Confirmatory testing pending. (4) HTN (hypertension): Plan: Continue lisinopril 40 mg daily. Supplement potassium today. (5) HLD (hyperlipidemia): Plan: Continue prior to hospital dose of rosuvastatin 50 mg three days per week. Admission and Anticipated Discharge Date Admission Date: December 17, 2020 Subjective Patient seen in follow up . She feels well. No subjective fevers / chills overnight. Afebrile on vital signs. One brief episode of SVT at 811 this am, otherwise SR in the 70s noted. Review of Systems Review of Systems: All systems reviewed & are unremarkable except as noted in HPI & below Physical Exam Physical Exam: Temp Pulse Resp BP Pulse Ox 36.7 C 76 19 110/66 92 08/18/21 07:22 12/18/20 07:22 12/18/20 07:22 12/18/20 07:22 12/18/20 07:22 Constitutional: WD/WN, vitals as above Respiratory: normal respiratory effort, lungs clear to auscultation Cardiovascular: RRR, no murmur, no edema Gastrointestinal (Abdomen): normal bowel sounds, soft, nontender, no hepatosplenomegaly Neurologic: PERRL, EOMI, accommodation nl, no face palsy, no dysarthria Results & Data ([facility]) Vital Signs (Past 12 Hours) Vital Signs Temp Pulse Pulse Resp BP Pulse Ox 12/18/20 07:22 36.7 C 76 19 110/66 92 12/18/20 04:03 36.6 C 18 100/66 96 12/17/20 23:47 36.8 C 82 18 117/71 94 12/17/20 22:20 76
[2020-12-18] MEDS: CEROVITE ADV FORMULA TAB PO SCH (11:17)
[2020-12-18] MEDS: cefTRIAXone SODIUM 2,000 MG in DEXTROSE 5% 50 ML IV SCH (11:17)
[2020-12-18 16:41] LABS: 18KDIGG Band NON-REACTIVE; 23KDIGG Band REACTIVE; 23KDIGM Band REACTIVE; 28KDIGG Band NON-REACTIVE; 30KDIGG Band NON-REACTIVE; 39KDIGG Band NON-REACTIVE; 39KDIGM Band NON-REACTIVE; 41KDIGG Band REACTIVE; 41KDIGM Band NON-REACTIVE; 45KDIGG Band NON-REACTIVE; 58KDIGG Band REACTIVE; 66KDIGG Band NON-REACTIVE; 93KDIGG Band NON-REACTIVE; Lyme Antibodies, WB IgG NEGATIVE (NEGATIVE); Lyme Antibodies, WB IgM NEGATIVE (NEGATIVE)
--- NOTE | 2020-12-18 17:01 | Electrocardiogram Report ---
Test Reason : Blood Pressure : / mmHG Vent. Rate : 073 BPM Atrial Rate : 073 BPM P-R Int : 158 ms QRS Dur : 082 ms QT Int : 428 ms P-R-T Axes : 021 034 041 degrees QTc Int : 471 ms Normal sinus rhythm Low voltage QRS Borderline ECG When compared with ECG of 17-DEC-2020 13:48, Nonspecific T wave abnormality no longer evident in Anterior leads QT has lengthened Confirmed by Chay Yepez ([id number]) on 12/18/2020 5:01:16 PM Referred By: REFERRED SELF Confirmed By:Chay Yepez
--- NOTE | 2020-12-18 19:22 | Hospitalist Progress Note ---
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 Peripheral smear with intracytoplasmic neutrophilic inclusions noted suspicious for anaplasmosis Anaplasma DNA pending Lyme IgM Ab positive - western blot pending Continue Rocephin and doxycycline Blood cultures pending (4) Tachyarrhythmia: Plan: Initially found to have A fib with RVR at 144 bpm. HR improved to low 100s after 20mg IV diltiazem in ER While still in ER, became tachycardic at 180s-190s with rhythm suspicious for SVT - resolved with vasovagal maneuver, repeat EKG showing NSR at 100 bpm Cardiology on board Continue Lopressor 25mg PO daily No anticoagulation for now, monitor on telemetry ECHO showed no wall motion abnormality with EF 60 to 65% (5) HTN (hypertension): Plan: Continue lisinopril Holding hctz in setting of hyponatremia (6) HLD (hyperlipidemia): Plan: Continue statin DVT Ppx: SQ heparin Code status: FULL PCP: Mer Dispo: Will discharge once medically stable Admission and Anticipated Discharge Date Admission Date: December 17, 2020 Subjective Pt was seen and examined for follow up of fever and tachycardia Lying in bed with no distress Pt said that she feels much better She has been afebrile Denies any chest pain, palpitation, dizziness and sob Physical Exam Physical Exam: General- No acute distress Head- atraumatic Eyes- PERRL, EOMI, ENT- oropharynx clear Neck- supple, no JVD Lungs- clear to auscultation Heart- regular rhythm; no murmur Abdomen- normal bowel sounds, soft, nontender Extremities- no calf tenderness Neuro- alert, oriented x 3; PERRL, EOMI; no facial palsy; no dysarthria Skin- warm & dry Results & Data Results & Data ([facility]) Vital Signs (Past 12 Hours) Vital Signs Temp Pulse Pulse Resp BP Pulse Ox 12/18/20 19:18 37.2 C 91 H 18 109/73 90 12/18/20 16:58 36.8 C 77 18 113/75 92 12/18/20 12:21 36.5 C 76 18 128/80 94 12/18/20 08:00 75 (1) Fever Fever type: unspecified Qualified Code(s): R50.9 - Fever, unspecified
[2020-12-18] MEDS: METOPROLOL TARTRATE 25 MG TAB PO SCH (20:25)
[2020-12-19] MEDS: HEPARIN SOD 5,000 UNIT/0.5 ML VIAL SQ SCH ×2 (05:58→15:07)
[2020-12-19 07:58] LABS: Hematocrit (blood only) 33.5 % (37-47); Hemoglobin 11.3 g/dL (12.0-16.0); Mean Corpuscular Hemoglobin 28.7 pg (25-34); Mean Corpuscular Hgb Conc 33.7 g/dL (32-36); Mean Platelet Volume 9.2 fL (7.4-10.4); Platelet Count 335 K/uL (130-400); RDW Coefficient of Variation 14.6 % (11.5-14.5); RDW Standard Deviation 44.8 fL (36.4-46.3); Red Blood Count 3.94 M/uL (4.2-5.4); White Blood Count 10.73 K/uL (4.8-10.8)
[2020-12-19] MEDS: METOPROLOL TARTRATE 25 MG TAB PO SCH (08:21)
[2020-12-19] MEDS: DOXYCYCLINE HYCLATE 100 MG in DEXTROSE 5% 100 ML IV SCH (08:22)
[2020-12-19 08:43] LABS: BUN Creatinine Ratio 22.8 (10-20); Calcium 8.7 mg/dl (8.5-10.1); Creatinine Clr Calc Pharmacy 72.3 ml/min; Est GFR (African American) 103.5 ml/min; Est GFR (Non-African American) 89.3 ml/min; Potassium 4.4 mmol/L (3.5-5.1)
[2020-12-19] MEDS: lisinopril 40 MG TAB PO SCH (09:18)
--- NOTE | 2020-12-19 10:58 | Cardiology Progress Note ---
Date of Service December 19, 2020 Assessment & Plan (1) Tachyarrhythmia: Plan: Patient with previous history of supraventricular tachycardia presents with febrile illness, testing positive for anaplasmosis and Lyme disease. Narrow complex tachycardia with ventricular rates up to 180 bpm noted in the emergency room, currently sinus rhythm in the 90s. 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 Echocardiogram reveals normal LVEF, no pericardial effusion. Continue metoprolol tartrate 25 mg twice daily. After she gets over her acute illness, this may need to be weaned as her baseline rhythm when she is feeling well is sinus bradycardia in the 50s as per historical EKGs as an outpatient and therefore she is not on beta-sonia therapy at present. (2) Anaplasmosis: Plan: Continue empiric antibiotics with Rocephin and doxycycline. Confirmatory PCR test pending. (3) Lyme disease: Plan: Continue empiric antibiotics with Rocephin and doxycycline as noted above. Western blot positive for 3 IgG bands, 1 IgG band. Anticipate need for 3 weeks of oral doxycycline therapy. (4) HTN (hypertension): Plan: Continue lisinopril 40 mg daily. Potassium improved to 4.4 today, 12/19/2020. (5) HLD (hyperlipidemia): Plan: Continue prior to hospital dose of rosuvastatin 5 mg three days per week. Admission and Anticipated Discharge Date Admission Date: December 17, 2020 Subjective Patient seen in cardiology follow-up. She denies any subjective cardiac complaints. Telemetry reveals sinus rhythm overnight and thus far today in the range of 70 to 90 bpm. No recurrent episodes of narrow complex tachycardia noted in the last 24 hours. Blood cultures with no growth to date. Physical Exam Physical Exam: Temp Pulse Resp BP Pulse Ox 36.7 C 76 19 110/66 92 12/18/20 07:22 12/18/20 07:22 12/18/20 07:22 12/18/20 07:22 12/18/20 07:22 Constitutional: WD/WN, vitals as above no acute distress Eyes: PERRL, conjunctivae normal, anicteric sclerae Neck: trachea midline, no thyromegaly Respiratory: normal respiratory effort, lungs clear to auscultation Cardiovascular: RRR, no murmur, no edema Gastrointestinal (Abdomen): normal bowel sounds, soft, nontender, no hepatosplenomegaly Skin: no rashes, warm and dry Neurologic: PERRL, EOMI, accommodation nl, no face palsy, no dysarthria Psychiatric: A+Ox3, euthymic affect Results & Data ([facility]) Vital Signs (Past 12 Hours) Vital Signs Temp Pulse Pulse Resp BP Pulse Ox 12/19/20 07:29 36.5 C 76 19 127/84 96 12/19/20 03:24 37.0 C 76 18 109/75 95 12/18/20 23:36 69 12/18/20 23:08 37.2 C 73 18 135/85 94
--- NOTE | 2020-12-19 13:51 | Discharge Summary ---
Date of Service December 19, 2020 Admission HPI Per Admitting Provider This is a 75yo F with a PMH of HTN, GERD, paroxysmal SVT and other medical problems listed below who presents with fever x2 weeks. Has felt achy and fatigued. Then developed facial pain in area of upper dentition and sinuses a few weeks ago and was evaluated by dentist. Had xrays and dental exam but was not found to have a cause for pain. Developed fever and started on course of amoxicillin. Was seen by PCP last Wednesday and sent to urgent care. Covid test was performed which was negative. Concern for possible tickborne disease due to lab abnormalities. Directed to come to ER for further evaluation. Does garden and spend time outdoors. Had a bump on L thigh then has since resolved. New rash on chest and back her daughter noticed earlier today. Continues to feel fatigued, achy and weak. Has had intermittent palpitations since arrival. No fever, chills, lightheadedness, visual changes, chest pain, SOB, nausea, vomiting, abdominal pain, dysuria, diarrhea or constipation. Initially found to have A fib with RVR at 144 bpm. Given 10mg IV diltiazem with improved HR to low 100s. Prior to my exam, patient's HR back to 180s. Underwent valsalva maneuver for suspected SVT with resolution. Repeat EKG showing NSR at [address] Zarate for paroxysmal SVT but no known history of Atrial fibrillation. Admission Exam Per Admitting Provider General Appearance: WD/WN, vitals as above, NAD, sitting up in bed, pleasant, conversing easily Head: normocephalic, atraumatic Eyes: normal inspection, PERRL, conjunctivae normal, anicteric sclerae ENT: external ear and nose normal, oropharynx normal Neck: normal visual inspection, trachea midline, no thyromegaly Respiratory: normal respiratory effort, lungs clear to auscultation, no wheeze, rales, rhonchi. No accessory muscle use Cardiovascular: tachycardic rate, regular rhythm, no murmur appreciated, normal peripheral pulses, no BLE edema. Vessels: no JVD Chest: normal inspection of chest Abdomen/GI: normal bowel sounds, soft, nontender, no hepatosplenomegaly Extremities/Musculoskeletal: no cyanosis or clubbing, extremities motor strength 5/5 Neurologic: PERRL, EOMI, accommodation nl, no face palsy, no dysarthria, CN's II-XI intact bilaterally and moves all extremities Psychiatric: A+Ox3, euthymic affect Skin: no rashes, normal color, warm/dry. + Maculopapular rash on chest and upper back, no wounds or drainage Principal Diagnosis Fever Anaplasmosis Discharge Exam General- No acute distress Head- atraumatic Eyes- PERRL, EOMI, ENT- oropharynx clear Neck- supple, no JVD Lungs- clear to auscultation Heart- regular rhythm; no murmur Abdomen- normal bowel sounds, soft, nontender Extremities- no calf tenderness Neuro- alert, oriented x 3; PERRL, EOMI; no facial palsy; no dysarthria Skin- warm & dry Discharge Data Allergies Allergy/AdvReac Type Severity Reaction Status Date / Time Sulfa (Sulfonamide Allergy Unknown . Verified 12/17/20 10:41 Antibiotics) Consultations 12/17/20 11:53 ED Decision to Admit Stat 12/17/20 14:31 Consult Cardiology Routine Ordered Studies 12/17/20 10:24 CT head/brain wo con Stat CT sinus wo con Stat CT sinus wo con HISTORY: 75 years-old Female fever acute fever COMPARISON: Head CT of same day TECHNIQUE: Multiple axial CT images of the paranasal sinuses were obtained without the use of IV contrast. A dose lowering technique was used consistent with the principals of JAMAL. FINDINGS: The imaged intracranial structures demonstrate no acute abnormality. Age-related involutional changes. Unremarkable soft tissues and orbits. Streak artifact from dental amalgam hardware. No acute calvarial or facial bone fracture. The mastoid air cells and middle ear cavities are generally clear. The frontal sinuses are clear. There is minimal mucosal thickening of the maxillary and sphenoid sinuses. Mild mucosal thickening involves the ethmoid air cells. Patency of the sphenoethmoidal and frontoethmoidal recesses and bilateral maxillary ostiomeatal units. No large Anushka cell or jericho bullosa. Normal nathaly akhil. Minimal sigmoidal bowing and spurring of the nasal septum. IMPRESSION: 1. Mild paranasal sinus disease. 2. Patent sinus outflow tracts. ACT 112: Negative or not required by law. The above report was generated using voice recognition software. It may contain grammatical, syntax or spelling errors. Electronically signed by: Jose Eduardo Pringle M.D. 12/17/2020 11:04 AM Dictated: 12/17/20 1101Transcribed: 12/17/[address] DOSE: HISTORY: Headache. TECHNIQUE: Multiaxial CT images of the head were performed without the use of intravenous contrast. Automated exposure control was utilized for this study. A dose lowering technique was utilized adhering to the principles of ALARA. Comparison: None. Findings: The paranasal sinuses and mastoid air cells are clear. The calvarium and skull base are intact. The ventricles and sulci are within normal limits. There is no mass, hematoma, midline shift, or acute infarct. Impression: No acute intracranial abnormality. ACT 112: Negative or not required by law. Electronically signed by: Pepe Orellana M.D. 12/17/2020 11:02 AM Dictated: 12/17/20 1058Transcribed: 12/17/20 1058 XR chest 1V portable HISTORY: 75 years-old Female Fever acute fever COMPARISON: None TECHNIQUE: Portable AP view of the chest FINDINGS: Cardiac silhouette is mildly enlarged. There is a suggested hiatal hernia. Linear left greater than right bibasilar consolidative opacities. There is no pneumothorax, pleural effusion, or overt pulmonary edema. The bones of the chest appear grossly intact. IMPRESSION: 1. Linear bibasilar opacities are suggestive of probable atelectasis. 2. Cardiomegaly. ACT 112: Negative or not required by law. The above report was generated using voice recognition software. It may contain grammatical, syntax or spelling errors. Electronically signed by: Jose Eduardo Pringle M.D. 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 Peripheral smear with intracytoplasmic neutrophilic inclusions noted suspicious for anaplasmosis Anaplasma DNA pending Lyme IgM Ab positive - western blot confirmation negative On Rocephin and doxycycline Blood cultures no growth will discharge on docycycline x 10 days to treat anaplasmosis (4) Tachyarrhythmia: Initially found to have A fib with RVR at 144 bpm. HR improved to low 100s after 20mg IV diltiazem in ER While still in ER, became tachycardic at 180s-190s with rhythm suspicious for SVT - resolved with vasovagal maneuver, repeat EKG showing NSR at 100 bpm Cardiology on board Continue Lopressor 25mg PO daily No anticoagulation for now, monitor on telemetry ECHO showed no wall motion abnormality with EF 60 to 65% (5) HTN (hypertension): Continue lisinopril Holding hctz in setting of hyponatremia (6) HLD (hyperlipidemia): Continue statin DVT Ppx: SQ heparin Code status: FULL PCP: Mer Dispo: Will discharge once medically stable Total Time Total Time Spent Total Time Spent (In Minutes): 35 minutes Discharge Plan Discharge Items Patient Disposition: Home - Self-Care Reason For Visit: ANAPLASMOSIS, A FIB WITH RVR Discharge Diagnosis: Anaplasmosis: Fever Condition on Discharge: Good Activity: Resume your previous activity Non-emergency contact: Primary Care Provider and Store Group Manager Call non-emergency contact if: you have any medication questions Follow-up/Referrals: Osbaldo Del Angel MD [Primary Care Provider] - (Date & Time 12/26/2020 11:20 AM Provider Osbaldo Del Angel MD [facility] ) Diet: Heart Healthy Addtl Attending Provider Instructions: Follow up with your primary care provider within 1 week Follow up with your cardiology Starting on Metoprolol 25mg twice a day. Continue monitor your heart rate if heart rate starts to drop in the 50's, metoprolol might need to be weaned off by your provider or cardiology Complete the course of Doxycycline Fall precaution Pending Studies at Discharge: Yes Stand-Alone Forms: My [employer], Smoking Cessation Medications and DC Order Prescriptions: New metoprolol tartrate 25 mg Tablet 25 mg PO BID 30 Days Qty: 60 RF: 0 doxycycline hyclate 100 mg tablet 100 mg PO BID 14 Days Qty: 28 RF: 0 Continued valacyclovir 500 mg tablet 500 mg PO BID PRN (Reason: Cold Sores) RF: 0 hydrochlorothiazide 25 mg tablet 12.5 mg PO DAILY RF: 0 lisinopril 40 mg tablet 40 mg PO QAM RF: 0 loratadine 10 mg Tablet 10 mg PO DAILY PRN (Reason: Allergy Symptoms) RF: 0 [id number] Tablet 1 tab PO DAILY RF: 0 rosuvastatin 5 mg tablet 5 mg PO MOWEFR RF: 0 acetaminophen [Tylenol Extra Strength] 500 mg Tablet 500 mg PO Q6H PRN (Reason: Pain) RF: 0 Discontinued amoxicillin-pot clavulanate 500-125 mg tablet 1 tab PO TID RF: 0 Discharge Orders: Discharge Order (Routine); Ordered 12/19/20 Ordered By: Raquel Barlow/Other Patient Handouts: Understanding Ehrlichiosis Admission Data Admit Date/Time: 12/17/20 12:54 Attending Provider: Raquel Montez Admit Provider: Raquel Montez Primary Care Provider: Osbaldo Del Angel Other Providers: Raquel Montez ; Christiano Zarate Other Interventions: Discharge Summary Assessment (RN) Last Done: 12/19/20 15:08
[2020-12-19] MEDS: CEROVITE ADV FORMULA TAB PO SCH (15:07)
[2020-12-19] MEDS: cefTRIAXone SODIUM 2,000 MG in DEXTROSE 5% 50 ML IV SCH (15:07)
--- NOTE | 2020-12-20 05:46 | Electrocardiogram Report ---
Test Reason : Blood Pressure : / mmHG Vent. Rate : 077 BPM Atrial Rate : 077 BPM P-R Int : 162 ms QRS Dur : 078 ms QT Int : 372 ms P-R-T Axes : 018 005 007 degrees QTc Int : 420 ms Normal sinus rhythm Low voltage QRS Nonspecific T wave abnormality When compared with ECG of 18-DEC-2020 05:27, Inverted T waves have replaced nonspecific T wave abnormality in Inferior leads Confirmed by Og Brunson ([id number]) on 12/20/2020 5:45:42 AM Referred By: REFERRED SELF Confirmed By:Og Brunson
== END 2020-12-19 15:31 | disposition home or self-care (01) | DRG 868 ==
LOC: ED 09:55 → 2S 12:54
DX: I48.91 Unspecified atrial fibrillation; I47.1 Supraventricular tachycardia; Z82.49 Family history of ischemic heart disease and other diseases of the circulatory system; E78.5 Hyperlipidemia, unspecified; A77.49 Other ehrlichiosis; I10 Essential (primary) hypertension; A69.20 Lyme disease, unspecified; K21.9 Gastro-esophageal reflux disease without esophagitis